=== PATIENT | female | born 1955 | race Two or more races ===

== ENCOUNTER 2018-08-29 09:57 | Day surgery (SDC) | payer OTHER ==
[2018-08-21 13:12] VITALS: BP 141/77
[~2018-08-29] VITALS: Ht 170.2 cm; Wt 79.0 kg
[~2018-08-29 09:57] MED LIST: NONE PER PT
[2018-08-29] MEDS ORDERED: LACTATED RINGERS 1,000 ML IV SCH (10:31)
[2018-08-29] MEDS ORDERED: BUPIVACAINE/PF-EPI 0.5% 1:200K ONE (12:15)
[2018-08-29] MEDS ORDERED: ONDANSETRON 2MG/ML, 2ML ONE (12:34)
[2018-08-29] MEDS ORDERED: NEOSTIGMINE 1 MG/ML, 10ML ONE (12:34)
[2018-08-29] MEDS ORDERED: KETOROLAC 30 MG/1 ML ONE (12:34)
[2018-08-29] MEDS ORDERED: SUCCINYLCHOLINE 20 MG/ML, 10ML ONE (12:34)
[2018-08-29] MEDS ORDERED: DEXAMETHASONE 4 MG/ML, 1ML ONE (12:34)
[2018-08-29] MEDS ORDERED: PROPOFOL 10 MG/ML, 20ML ONE (12:34)
[2018-08-29] MEDS ORDERED: ROCURONIUM 10 MG/ML,10ML ONE (12:34)
[2018-08-29] MEDS ORDERED: GLYCOPYRROLATE 0.2MG/1ML, 5ML ONE (12:34)
[2018-08-29] MEDS ORDERED: CEFAZOLIN 1,000 MG ONE (12:34)
[2018-08-29] MEDS ORDERED: HALOPERIDOL 5 MG/ML IV PRN (13:00)
[2018-08-29] MEDS ORDERED: EPHEDRINE 50 MG/ML, 1ML IVPush PRN (13:00)
[2018-08-29] MEDS ORDERED: DIAZEPAM 5 MG/ML, 2ML IVPush PRN (13:00)
[2018-08-29] MEDS ORDERED: MIDAZOLAM 1 MG/ML, 2ML IV PRN (13:00)
[2018-08-29] MEDS ORDERED: HYDROmorphone 2 MG/ML, 1ML IVPush PRN (13:00)
[2018-08-29] MEDS ORDERED: ACETAMINOPHEN 325 MG TABLET PO PRN (13:00)
[2018-08-29] MEDS ORDERED: ALBUTEROL SULFATE 2.5 MG/3 ML NPPB PRN (13:00)
[2018-08-29] MEDS ORDERED: OXYcodone 5 MG/5 ML ORAL.SOL UDC PO PRN (13:00)
[2018-08-29] MEDS ORDERED: ONDANSETRON 2MG/ML, 2ML IV PRN (13:00)
[2018-08-29] MEDS ORDERED: LABETALOL 5MG/ML, 20ML IV PRN (13:00)
[2018-08-29] MEDS ORDERED: MEPERIDINE/PF 25MG/0.5ML IVPush PRN (13:00)
[2018-08-29] MEDS ORDERED: PROMETHAZINE 25 MG/ML, 1ML IV PRN (13:00)
[2018-08-29] MEDS ORDERED: PROMETHAZINE 12.5 MG SUPP PR PRN (13:00)
[2018-08-29] MEDS ORDERED: MORPHINE SULFATE 4 MG/ML, 1ML IVPush PRN (13:00)
[2018-08-29] MEDS ORDERED: hydrALAzine 20 MG/ML, 1ML IV PRN (13:00)
[2018-08-29] MEDS ORDERED: FENTANYL PF 100 MCG/2ML IV PRN (13:00)
[2018-08-29] MEDS ORDERED: ONDANSETRON ODT 8 MG PO PRN (13:00)
[2018-08-29] MEDS ORDERED: FENTANYL PF 100 MCG/2ML ONE (13:45)
[2018-08-29] MEDS ORDERED: ACETAMINOPHEN 650 MG/20.3 ML UDC ONE (13:45)
[2018-08-29] MEDS ORDERED: OXYcodone 5 MG/5 ML ORAL.SOL UDC ONE (13:46)
== END 2018-08-29 18:00 | disposition home or self-care (01) ==
LOC: OUT 09:57
PROVIDERS: ATTEND Specialist
DX: N83.312 Acquired atrophy of left ovary (principal); N83.311 Acquired atrophy of right ovary; N83.8 Other noninflammatory disorders of ovary, fallopian tube and broad ligament; G47.33 Obstructive sleep apnea (adult) (pediatric); Z98.890 Other specified postprocedural states; Z88.6 Allergy status to analgesic agent; Z88.5 Allergy status to narcotic agent; Z88.8 Allergy status to other drugs, medicaments and biological substances
CPT/HCPCS: 58661; 88305; J0330; J0690; J1100; J1885; J2250; J2405; J2704; J2710; J3010; J3490; J7120